=== PATIENT | male | born 1965 | race Caucasian/White ===

== ENCOUNTER 2018-02-20 08:59 | Day surgery (SDC) | payer MEDICAID ==
[~2018-02-20 08:59] MED LIST: ACETAMINOPHEN 1,000 MG/100 ML BTL IV ONE
[2018-02-20] MEDS ORDERED: MIDAZOLAM HCL 2MG/2ML VIAL IV ONE (09:00)
[2018-02-20] MEDS ORDERED: KETOROLAC 30 MG/ML VIAL IVP ONE (09:00)
[2018-02-20] MEDS ORDERED: ONDANSETRON HCL IV 4 MG/2 ML VIAL IVP ONE (09:00)
[2018-02-20] MEDS ORDERED: FENTANYL PF 100MCG/2ML VIAL IV ONE (09:00)
[2018-02-20] MEDS ORDERED: SEVOFLURANE 250 ML INH ONE (09:00)
[2018-02-20] MEDS ORDERED: PROPOFOL 10 MG/ML VIAL IV ONE (09:00)
[2018-02-20] MEDS ORDERED: HYDROMORPHONE HCL 2 MG/ML VIAL IV ONE ×2 (09:00)
[2018-02-20] MEDS ORDERED: LIDOCAINE 2% MDV (20MG/ML) 20ML VIAL IV ONE (09:00)
[2018-02-20] MEDS ORDERED: HYDROCODONE/APAP 7.5/325MG TABLET PO ONE (09:00)
--- NOTE | 2018-02-23 13:20 | Operative Note ---
DATE OF SERVICE: 02/20/2018. DATE OF SURGERY: 02/20/2018. Surgeon: Evin Pollard DO. REFERRING PHYSICIAN: Lazaro Bell MD. 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 OPERATION: Submuscular ulnar nerve transposition, left elbow. PROCEDURE: This 53-year-old male was taken to the operating room and placed in the supine position on the operating room table, where general anesthesia was induced. The left upper extremity was elevated, prepped with Hibiclens, and draped in the usual sterile fashion. It was exsanguinated and the tourniquet inflated to 250 mmHg. An incision was made on the medial aspect of the elbow, centered right over the medial epicondyle, dissecting down through the skin and subcutaneous tissue. Hemostasis obtained with the electrocautery. The ulnar nerve was then easily identified at the proximal edge of the cubital tunnel, and then the aponeurosis was divided over the top of the nerve, and the nerve was freed, and we placed the nerve back in the cubital tunnel and flexed and extended the elbow, but the nerve subluxed and was not stable in that position. It was then transposed into a submuscular position. We elevated the conjoined tendon off of the medial epicondyle and divided the intermuscular septum at the superior aspect of the medial epicondyle, and dissected down to the 1st motor branch of the ulnar nerve and then transposed it into a submuscular position. The conjoined tendon was then able to be brought over the nerve, and the elbow was flexed and extended, and no impingement of the nerve was identified. We therefore drilled 3 holes in the medial epicondyle and used 0 Vicryl to suture the conjoined tendon back down to the medial epicondyle through 3 drill holes. The ulnar nerve was held back in the submuscular position while the sutures were tied. Once all sutures were secured, the elbow was then reexamined and the nerve still seemed to be free throughout the full range of motion. The wound was then copiously irrigated, hemostasis obtained with the electrocautery, and the wound closed with 3-0 Vicryl and interlocking 4-0 nylon suture. Sterile dressings were applied with plaster splint for mobilization with the elbow at 90 degrees and the forearm in mid pronation supination. Gross Pathology: This patient demonstrated impingement of the ulnar nerve in the cubital tunnel. It was transferred into the submuscular position, as described above. TI
== END 2018-02-20 12:05 | disposition home or self-care (01) ==
LOC: SUR 08:59
PROVIDERS: ATTEND Orthopaedic Surgery
DX: G56.22 Lesion of ulnar nerve, left upper limb (principal)
CPT/HCPCS: 64718; 01710; J1885; J2405; J3010; J1170

== ENCOUNTER 2018-02-21 17:09 | Emergency (ER) | payer MEDICAID ==
--- NOTE | 2018-02-21 18:28 | Emergency Department Record ---
History of Present Illness - General Chief Complaint: General Stated Complaint: POST OF PROBLEMS Time Seen by Provider: 02/21/18 18:21 Mode of Arrival: Ambulatory - History of Present Illness Initial comments: Dr. Mcdaniels did surgery on his left elbow and he is concerned about the feeling of his elbow . Dressing looks good and fingers look good and will not take off dressing and recommended he call Dr. Pollard next week for advice - [place] Coma Scale Eye Response: (4) Open spontaneously Motor Response: (6) Obeys commands Verbal Response: (5) Oriented Linda Total: 15 - Related Data Home Medications Medication Instructions Recorded Confirmed Last Taken Hydrocodone/Acetaminophen [[place] 1 each PO ASDIR 02/21/18 02/21/18 02/21/18 7.5-325 Tablet] Allergies Allergy/AdvReac Type Severity Reaction Status Date / Time No Known Allergies Allergy no Unverified 02/21/18 17:54 allergies Travel Screening - Travel/Exposure Within Last 30 Days Have you traveled within the last 30 days?: No Review of Systems Reviewed: No additional complaints except as noted below Constitutional: Reports: As per HPI. Denies: Chills, Fever, Malaise, Night sweats, Weakness, Weight change Eyes: Reports: As per HPI. Denies: Eye discharge, Eye pain, Photophobia, Vision change ENT: Reports: As per HPI. Denies: Congestion, Dental pain, Ear pain, Epistaxis , Hearing loss, Throat pain Respiratory: Reports: As per HPI. Denies: Cough, Dyspnea, Hemoptysis, Stridor, Wheezes Cardiovascular: Reports: As per HPI. Denies: Arrhythmia, Chest pain, Dyspnea on exertion, Edema, Murmurs, Orthopnea, Palpitations, Paroxysmal nocturnal dyspnea, Rheumatic Fever, Syncope Endocrine: Reports: As per HPI. Denies: Fatigue, Heat or cold intolerance, Polydipsia, Polyuria Gastrointestinal: Reports: As per HPI. Denies: Abdominal pain, Constipation, Diarrhea, Hematemesis, Hematochezia, Melena, Nausea, Vomiting Genitourinary: Reports: As per HPI. Denies: Dysuria, Frequency, Hematuria, Incontinence, Retention, Testicular pain, Testicular mass, Urgency Musculoskeletal: Reports: As per HPI. Denies: Arthralgia, Back pain, Gout, Joint swelling, Myalgia, Neck pain Skin: Reports: As per HPI. Denies: Bruising, Change in color, Change in hair/ nails, Lesions, Pruritus, Rash Neurological: Reports: As per HPI. Denies: Abnormal gait, Confusion, Headache, Numbness, Paresthesias, Seizure, Tingling, Tremors, Vertigo, Weakness Psychiatric: Reports: As per HPI. Denies: Anxiety, Auditory hallucinations, Depression, Homicidal thoughts, Suicidal thoughts, Visual hallucinations Hematological/Lymphatic: Reports: As per HPI. Denies: Anemia, Blood Clots, Easy bleeding, Easy bruising, Swollen glands Past Medical History - SOCIAL HISTORY Smoking Status: Heavy tobacco smoker (>10/day) Alcohol Use: None Drug Use: None - RESPIRATORY Hx Respiratory Disorders: Yes Hx Pneumonia: Yes - CARDIOVASCULAR Hx Cardio Disorders: No - NEURO Hx Neuro Disorders: No - GI Hx GI Disorders: No - Hx Genitourinary Disorders: No - ENDOCRINE Hx Endocrine Disorders: No - MUSCULOSKELETAL Hx Musculoskeletal Disorders: Yes Hx Arthritis: Yes (right hand) - PSYCH Hx Psych Problems: Yes Hx Depression: (denies) - HEMATOLOGY/ONCOLOGY Hx Hematology/Oncology Disorders: No Family Medical History Any Significant Family History?: Yes Hx Cancer: Mother Hx Heart Disease: Brother/Sister Physical Exam - General General Appearance: Alert, Oriented x3, Cooperative, No acute distress - Head Head exam: Normal inspection - Eye Eye exam: Normal appearance, PERRL Pupils: Normal accommodation - ENT ENT exam: Normal exam, Mucous membranes moist, Normal external ear exam, Normal orophraynx, TM's normal bilaterally Ear exam: Normal external inspection. negative: External canal tenderness Nasal Exam: Normal inspection. negative: Discharge, Sinus tenderness Mouth exam: Normal external inspection, Tongue normal Teeth exam: Normal inspection. negative: Dental caries Throat exam: Normal inspection. negative: Tonsillar erythema, Tonsillar exudate - Neck Neck exam: Normal inspection, Full ROM. negative: Tenderness - Respiratory Respiratory exam: Normal lung sounds bilaterally. negative: Respiratory distress - Cardiovascular Cardiovascular Exam: Regular rate, Normal rhythm, Normal heart sounds - GI/Abdominal GI/Abdominal exam: Soft, Normal bowel sounds. negative: Tenderness - Rectal Rectal exam: Deferred - exam: Deferred - Extremities Extremities exam: Normal inspection, Full ROM, Normal capillary refill. negative: Tenderness - Back Back exam: Reports: Normal inspection, Full ROM. Denies: Muscle spasm, Rash noted, Tenderness - Neurological Neurological exam: Alert, Normal gait, Oriented X3, Reflexes normal - Psychiatric Psychiatric exam: Normal affect, Normal mood - Skin Skin exam: Dry, Intact, Normal color, Warm Course Vital Signs 02/21/18 17:50 Temperature 97.9 F Pulse Rate 99 H Respiratory 20 Rate Blood Pressure 131/91 Pulse Ox 97 - Reevaluation(s) Reevaluation #1: left arm looks appropriate 02/21/18 18:26 Disposition Clinical Impression: Post-op pain Disposition: Home, Self-Care Condition: (1) Good Instructions: Wound Healing and Your Diet (ED) Additional Instructions: call Dr. Pollard next week Time of Disposition: 18:28 Quality - Quality Measures Quality Measures: N/A - Blood Pressure Screening Does Patient Have Any of the Following: No Blood Pressure Classification: Hypertensive Reading Systolic Measurement: 131 Diastolic Measurement: 91 Screening for High Blood Pressure: < Pre-Hypertensive BP, F/U Documented > [ [id number]] Pre-Hypertensive Follow-up Interventions: Referral to alternative/primary care provider.
== END 2018-02-21 18:37 | disposition home or self-care (01) ==
LOC: ER 17:09
DX: G89.18 Other acute postprocedural pain (principal); M25.522 Pain in left elbow; F17.210 Nicotine dependence, cigarettes, uncomplicated
CPT/HCPCS: 99282